=== PATIENT | female | born 1995 | race African-American/Black ===

== ENCOUNTER 2020-12-23 14:56 | Outpatient (CLI) | payer BC, SELFPAY ==
--- NOTE | ~2020-12-23 | US_ITS ---
EXAMINATION: US OB <= 14 weeks fetus DATE: 12/23/2020 15:56 INDICATION: First trimester dating TECHNIQUE: Real-time pelvic transabdominal and transvaginal ultrasound was performed. COMPARISON: None. FINDINGS: The uterus measures 11.4 x 8.4 x 5.2 cm. There is an intrauterine gestational sac. A yolk sac is identified. heart motion is identified measuring 166 beats per minute (bpm) by M-mode Do ppler. The crown rump length measures 3.5 cm , which correlates with an estimated gestational a ge of 10 weeks and 3 day(s) (+/-) 7 day(s). The left ovary is not visualized however no left adnexal abnormality is seen. The right ovary measure s 2.8 x 1.3 x 2.1 cm. There is normal vascular flow in the right ovary. There is no free fluid in the pelvis. IMPRESSION: 1. Live intrauterine with an estimated gestational age of 10 weeks and 3 day(s) (+/-) 7 day (s) and an estimated delivery date of 07/18/2021. Reviewed, dictated and finalized at location B. IMPRESSION: 1. Live intrauterine with an estimated gestational age of 10 weeks an d 3 day(s) (+/-) 7 day(s) and an estimated delivery date of 07/18/2021.
== END 2020-12-23 14:57 | disposition home or self-care (01) ==
PROVIDERS: PCP Physician Assistant; Visit Provider Obstetrics & Gynecology
DX: Z34.91 Encounter for supervision of normal pregnancy, unspecified, first trimester (principal); Z3A.10 10 weeks gestation of pregnancy
CPT/HCPCS: 76801